=== PATIENT | male | born 1990 | race African-American/Black ===

== ENCOUNTER 2019-03-29 10:48 | Emergency (ER) | payer OTHER ==
[~2019-03-29] VITALS: Ht 193 cm; Wt 81.7 kg
[~2019-03-29 10:48] MED LIST: DOXYCYCLINE 10100 MG PO; FLEXERIL PO; IBUPROFEN 600600 M1 PO; MOBIC15 MG PO; NOHOMEMEDICATIONS; NORCO 5-325 TA1 EACH PO; PENICILLIN V P500 MG PO; PENICILLIN VK500 M1 PO; PREDNISONE 20 M20 MG PO; PROMETHAZINE-C120 ML PO; TRAMADOL 50 MG50 MG PO; ULTRAM 50MG TAB50 MG PO; ZPAK PO
[2019-03-29] MEDS ORDERED: NORFLEX100 MG PO (11:42)
[2019-03-29] MEDS ORDERED: NAPROSYN500 MG PO (11:42)
[2019-03-29 11:50] VITALS: BP 102/72
== END 2019-03-29 11:50 | disposition home or self-care (01) ==
LOC: ER 10:48
DX: S39.012A Strain of muscle, fascia and tendon of lower back, initial encounter (principal); S29.012A Strain of muscle and tendon of back wall of thorax, initial encounter; X50.1XXA Overexertion from prolonged static or awkward postures, initial encounter; Y93.67 Activity, basketball; Y92.89 Other specified places as the place of occurrence of the external cause; Y99.8 Other external cause status

== ENCOUNTER 2020-08-02 23:50 | Inpatient (IN) | payer OTHER ==
[~2020-08-02] VITALS: Ht 190.5 cm; Wt 74.5 kg
[~2020-08-02 23:50] MED LIST changes: +NAPROSYN500 MG PO; +NORFLEX100 MG PO
[2020-08-02 23:54] VITALS: BP 106/59
[2020-08-03 00:50] LABS: ABSOLUTE NEUTROPHILS 2.7 thou/uL (1.4-8.2); BASOPHILS 0.1 % (0.0-2.0); EOSINOPHILS 3.9 % (0.0-3.0); HEMATOCRIT 36.2 % (42.0-52.0); HEMOGLOBIN 12.3 gm/dL (14.0-18.0); LYMPHOCYTES 30.9 % (24.0-44.0); MCH 30.2 pg (26.0-34.0); MCHC 33.9 g/dL (28.0-37.0); MCV 88.9 fL (80.0-100.0); MONOCYTES 8.4 % (1.0-8.0); PLATELET COUNT 204 thou/uL (150-400); POLYS 56.7 % (36.0-66.0); RBC 4.07 mil/uL (4.50-6.00); RDW 13.1 % (10.5-14.5); WBC 4.9 thou/uL (4.0-11.0)
[2020-08-03 00:52] LABS: ANION GAP 9 mmol/L (7-16); BUN 17 mg/dL (7-18); CALCIUM 9.1 mg/dL (8.5-10.1); CHLORIDE 106 mmol/L (98-107); CO2 28 mmol/L (21-32); CREATININE 0.9 mg/dL (0.7-1.3); GLUCOSE 116 mg/dL (74-106); POTASSIUM 4.4 mmol/L (3.5-5.1); SODIUM 143 mmol/L (136-145)
[2020-08-03 01:00] LABS: ALBUMIN 4.2 g/dL (3.4-5.0); LIPASE 109 U/L (73-393); SGOT 14 U/L (15-37); SGPT 14 U/L (16-63); TOTAL BILIRUBIN 0.2 mg/dL (0.2-1.0); TROPONIN-I <0.06 ng/mL (<0.06)
[2020-08-03 03:48] LABS: APTT 24.2 Seconds (24.5-32.8); PROTIME 10.9 Seconds (10.5-12.1)
--- NOTE | 2020-08-03 05:05 | NUR ---
pt moved to inpatient hospital bed.
[2020-08-03 06:15] VITALS: BP 106/59
--- NOTE | 2020-08-03 07:14 | EKG ---
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1990 Requested By: Juanjo Vazquez Order Number: [id number] MD: Russ Abrams Measurements Intervals [place] Rate: 67 P: 76 SD: 142 QRS: 69 QRSD: 89 T: 58 QT: 363 QTc: 383 Interpretive Statements Sinus rhythm LVH by voltage J Point elev, probable normal early repol pattern Baseline wander in lead(s) V5 No previous ECG available for comparison Electronically Signed On 08-03-2020 7:14:30 CDT by Russ Abrams [email or web address] <ELECTRONICALLY SIGNED> By: Russ Abrams MD, [facility] 08/03/20 0714 2358 Russ Abrams MD, FACC /EPI
[2020-08-03 07:16] VITALS: BP 106/59
[2020-08-03 08:00] VITALS: BP 110/66
[2020-08-03 16:39] VITALS: BP 104/60
--- NOTE | 2020-08-03 19:15 | NUR ---
RN ADMITTED PT FROM ER FOR PE ABOUT 0800AM, PT IS A&OX4, PT IS ROOM AIR , PT'S VS AND O2SAT ARE STABLE, PT DENIES SOB WITH ACTIVITIES, PT HAS PO TYENOL 650MG FOR CHEST PAIN, BLE US RESULTS SHOW NEGATIVE DVT, RN WILL REPORT TO NEXT SHIFT TO KEEP EYE ON PT.
[2020-08-03 19:38] VITALS: BP 97/62
[2020-08-04 03:40] VITALS: BP 107/59
[2020-08-04 05:32] LABS: HEMATOCRIT 39.2 % (42.0-52.0); HEMOGLOBIN 13.1 gm/dL (14.0-18.0); MCH 29.8 pg (26.0-34.0); MCHC 33.5 g/dL (28.0-37.0); MCV 88.9 fL (80.0-100.0); RBC 4.41 mil/uL (4.50-6.00); RDW 13.2 % (10.5-14.5); WBC 4.7 thou/uL (4.0-11.0)
[2020-08-04 06:09] LABS: CALCIUM 8.9 mg/dL (8.5-10.1); CREATININE 0.9 mg/dL (0.7-1.3); POTASSIUM 4.3 mmol/L (3.5-5.1)
[2020-08-04 07:45] VITALS: BP 100/58
--- NOTE | 2020-08-04 09:35 | NUR ---
INITIAL ASSESSMENT: CASPER reviewed chart and spoke with nursing and attending physician. Pt was admitted from home due to chest pain. Pt with PE. Pt started on Eliquis. Pt may be ready for discharge later today. CASPER met with pt and at bedside. Introduced role of SW. Pt is alert/orientated x 4. Pt and live at home. Prior to admission, pt was independent with ADLs. No use of DME. No hx of HH or post-acute placement. Pt does not currently have a PCP, but is interested in establishing care at [facility]. CASPER discussed prescription for Eliquis and offered to check coverage and availability at pt's pharmacy. Pt uses the [facility] in [place]. CASPER placed call to the pharmacy ([phone]) and requested insurance verification. [employer] requires prior authorization for new prescription. Exposed [employer] to fax SW form to have physician sign. Prior auth to be called into ID# [id number]. Awaiting fax at this time. CASPER is following to assist as needed with discharge planning.
[2020-08-04 12:14] VITALS: BP 100/58
[2020-08-04] MEDS ORDERED: TYLENOL ARTHRI650 MG PO ×2 (12:21)
[2020-08-04] MEDS ORDERED: ELIQUIS5 M1 PO ×2 (12:21)
[2020-08-04 14:21] VITALS: BP 100/58
[2020-08-04 14:47] VITALS: BP 100/58
--- NOTE | 2020-08-04 14:49 | NUR ---
PATIENT DISCHARGED TO HOME. SIGNIFICANT OTHER AT BEDSIDE DURING EDUCATION AND DISCHARGE INSTRUCTIONS. NO QUETIONS OR CONCERNS AT TIME OF DISCHARGE. PRESCRIPTION GIVEN TO PATIENT. IV AND TELE REMOVED.
[2020-08-05] MEDS ORDERED: NORCO5 PO (14:18)
== END 2020-08-04 15:21 | disposition home or self-care (01) | DRG 176 ==
LOC: ER 23:50 → 3W 08-03 02:45 → EROBS 08-03 02:45 → 3W 08-03 08:25
PROVIDERS: Emergency Medicine; Nurse Practitioner Family; ADMIT Hospitalist; ATTEND Hospitalist
DX: I26.99 Other pulmonary embolism without acute cor pulmonale (principal); F17.210 Nicotine dependence, cigarettes, uncomplicated; Z88.8 Allergy status to other drugs, medicaments and biological substances; Z83.3 Family history of diabetes mellitus; Z71.6 Tobacco abuse counseling
CPT/HCPCS: 10879

== ENCOUNTER 2020-08-05 12:52 | Emergency (ER) | payer OTHER ==
[~2020-08-05] VITALS: Ht 190.5 cm; Wt 74.4 kg
[~2020-08-05 12:52] MED LIST changes: +ELIQUIS5 M1 PO; +TYLENOL ARTHRI650 MG PO
[2020-08-05 14:13] VITALS: BP 113/74
[2020-08-05] MEDS ORDERED: NORCO5 PO (14:18)
--- NOTE | 2020-08-06 11:34 | EKG ---
[address] [address] [place] [address] ELECTROCARDIOGRAM REPORT Name: ROSALES BARBA [id number] Admission: 08/05/20 Attend Phys: Discharge: 08/05/20 Date of : 89 Report #: [id number] 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 08/06/20 1134 1257 1257 Jeremie Kenyon MD, FACC /EPI
== END 2020-08-05 14:13 | disposition home or self-care (01) ==
LOC: ER 12:52
DX: I26.99 Other pulmonary embolism without acute cor pulmonale (principal); R63.0 Anorexia; Z88.6 Allergy status to analgesic agent; Z68.20 Body mass index [BMI] 20.0-20.9, adult

== ENCOUNTER → 2020-09-25 | Outpatient (CLI) | payer OTHER ==
[~2020-09-25] MED LIST changes: +NORCO5 PO
--- NOTE | 2020-09-25 14:44 | 2DMMODE ---
[facility] [place] [address] 2 D/M-MODE ECHOCARDIOGRAM Name: ROSALES BARBA Room #: REG MICHEAL Jenkins.#: [id number] Admission: 09/25/20 Attend Phys: Walker Gallegos MD Discharge: Date of : 89 Report #: [id number] THIS REPORT FOR: cc: Sean Juarez James A. DO Park, Jin S. MD ~ APPROVED REPORT Study performed: 09/25/2020 12:26:25 EXAM: Comprehensive 2D, Doppler, and color-flow Echocardiogram Patient Location: Out-Patient Room #: 2 Status: routine BSA: 2.00 HR: 61 bpm BP: 118/62 mmHg Rhythm: NSR Other Information Study Quality: Excellent Indications Pulmonary Embolism Dyspnea 2D Dimensions RVDd: 38.70 mm IVSd: 9.40 (7-11mm) LVOT Diam: 23.56 (18-24mm) LVDd: 52.81 mm PWd: 7.39 (7-11mm) Ascending Ao: 31.27 (22-36mm) LVDs: 36.64 (25-40mm) Left Atrium: 31.46 (27-40mm) Aortic Root: 34.61 mm IVC: 17.00 mm Volumes Left Atrial Volume (Systole) Single Plane 4CH: 38.60 mL Single Plane 2CH: 49.94 mL LA ESV Index: 26.00 mL/m2 Aortic Valve AoV Peak Norberto.: 1.01 m/s AO Peak Gr.: 4.12 mmHg LVOT Max P.25 mmHg LVOT Max V: 0.90 m/s [facility] [place] [address] 2 D/M-MODE ECHOCARDIOGRAM Name: ROSALES BARBA Room #: REG CL [facility]#: [id number] Admission: 09/25/20 Attend Phys: Chrissy Bazan Discharge: Date of : 89 Report #: [id number] TESFAYE Vmax: 3.87 cm2 Mitral Valve E/A Ratio: 1.3 MV Decel. Time: 173.37 ms MV E Max Norberto.: 0.77 m/s MV A Norberto.: 0.58 m/s MV PHT: 50.28 ms IVRT: 110.73 ms Pulmonary Valve PV Peak Norberto.: 0.93 m/s PV Peak Gr.: 3.45 mmHg Pulmonary Vein P Vein S: 0.46 m/s P Vein A: 0.18 m/s P Vein D: 0.62 m/s P Vein A Dur.: 110.7 msec P Vein S/D Ratio: 0.74 Left Ventricle The left ventricle is normal size. There is normal LV segmental wall motion. There is normal left ventricular wall thickness. Left ventricular systolic function is normal. The left ventricular ejection fraction is within the normal range. LVEF is 60%. The left ventricular diastolic function is normal. Right Ventricle The right ventricle is normal size. The right ventricular systolic function is normal. Atria The left atrium size is normal. The right atrium size is normal. Aortic Valve The aortic valve is normal in structure. No aortic regurgitation is present. There is no aortic valvular stenosis. Mitral Valve The mitral valve is normal in structure. There is no mitral valve regurgitation noted. No evidence of mitral valve stenosis. Tricuspid Valve The tricuspid valve is normal in structure. There is no tricuspid valve regurgitation noted. Pulmonic Valve [facility] [address] [place] [address] 2 D/M-MODE ECHOCARDIOGRAM Name: ROSALES BARBA Room #: REG CL Svetlana.#: [id number] Admission: 09/25/20 Attend Phys: Chrissy Bazan Discharge: Date of : [birth year] Report #: [id number] The pulmonary valve is normal in structure. There is no pulmonic valvular regurgitation. Great Vessels The aortic root is normal in size. IVC is normal in size and collapses >50% with inspiration. Pericardium There is no pericardial effusion. <Conclusion> The left ventricle is normal size. There is normal left ventricular wall thickness. Left ventricular systolic function is normal. The right ventricle is normal size. The left atrium size is normal. The aortic valve is normal in structure. There is no mitral valve regurgitation noted. <ELECTRONICALLY SIGNED> By: Cam Christine MD 09/25/20 1444 1444 1444 Cam Christine MD /INF
== END ==
LOC: CV 13:08
PROVIDERS: ATTEND Pediatrics
DX: I27.82 Chronic pulmonary embolism (principal); R55 Syncope and collapse; R06.00 Dyspnea, unspecified

== ENCOUNTER 2020-10-08 20:03 | Emergency (ER) | payer OTHER ==
[~2020-10-08] VITALS: Ht 190.5 cm; Wt 78.0 kg
[2020-10-08 20:13] VITALS: BP 115/71
[2020-10-08] MEDS ORDERED: METHOCARBAMOL500 M2 PO (21:16)
== END 2020-10-08 22:07 | disposition home or self-care (01) ==
LOC: ER 20:03
DX: S39.012A Strain of muscle, fascia and tendon of lower back, initial encounter (principal); Z88.6 Allergy status to analgesic agent; V43.02XA Car driver injured in collision with other type car in nontraffic accident, initial encounter; Y93.89 Activity, other specified; Y92.89 Other specified places as the place of occurrence of the external cause; Y99.8 Other external cause status

== ENCOUNTER 2020-10-10 22:48 | Emergency (ER) | payer OTHER ==
[~2020-10-10] VITALS: Ht 190.5 cm; Wt 78.9 kg
[~2020-10-10 22:48] MED LIST changes: +METHOCARBAMOL500 M2 PO
[2020-10-10] MEDS ORDERED: TRELEGY ELLIPT1 EACH INH (23:01)
[2020-10-11] LABS: HEMATOCRIT 40.8 % (42.0-52.0); HEMOGLOBIN 13.5 gm/dL (14.0-18.0); MCH 29.5 pg (26.0-34.0); MCV 89.6 fL (80.0-100.0); PLATELET COUNT 165 thou/uL (150-400); RBC 4.55 mil/uL (4.50-6.00); RDW 13.2 % (10.5-14.5); WBC 4.2 thou/uL (4.0-11.0)
[2020-10-11 00:11] LABS: CALCIUM 8.7 mg/dL (8.5-10.1); POTASSIUM 3.8 mmol/L (3.5-5.1)
[2020-10-11 00:17] LABS: APTT 33.9 Seconds (24.5-32.8); INR 1.13; PROTIME 12.2 Seconds (10.5-12.1)
[2020-10-11 00:45] VITALS: BP 101/54
[2020-10-11 01:16] LABS: ABSOLUTE NEUTROPHILS 2.6 thou/uL (1.4-8.2); PLATELET ESTIMATE NORMAL
== END 2020-10-11 00:45 | disposition home or self-care (01) ==
LOC: ER 22:48
PROVIDERS: Emergency Medicine
DX: U07.1 COVID-19 (principal); R51.9 Headache, unspecified; Z79.891 Long term (current) use of opiate analgesic; Z79.899 Other long term (current) drug therapy; Z88.8 Allergy status to other drugs, medicaments and biological substances; V89.2XXA Person injured in unspecified motor-vehicle accident, traffic, initial encounter; Y93.89 Activity, other specified; Y92.89 Other specified places as the place of occurrence of the external cause; Y99.8 Other external cause status

== ENCOUNTER → 2020-11-02 | Outpatient (CLI) | payer OTHER ==
[~2020-11-02] MED LIST changes: +TRELEGY ELLIPT1 EACH INH
== END ==
LOC: RAD 16:02
PROVIDERS: ATTEND Nurse Practitioner
DX: Q05.6 Thoracic spina bifida without hydrocephalus (principal); V89.2XXD Person injured in unspecified motor-vehicle accident, traffic, subsequent encounter

== ENCOUNTER 2021-04-24 14:52 | Emergency (ER) | payer BC, OTHER ==
[~2021-04-24] VITALS: Ht 190.5 cm; Wt 81.7 kg
[2021-04-24 15:39] LABS: HEMATOCRIT 41.1 % (42.0-52.0); HEMOGLOBIN 13.6 gm/dL (14.0-18.0); MCH 29.4 pg (26.0-34.0); MCHC 33.1 g/dL (28.0-37.0); MCV 88.8 fL (80.0-100.0); RBC 4.63 mil/uL (4.50-6.00); WBC 4.7 thou/uL (4.0-11.0)
[2021-04-24 15:42] LABS: CREATININE 1.2 mg/dL (0.7-1.3); POTASSIUM 4.1 mmol/L (3.5-5.1)
[2021-04-24 15:48] LABS: ALBUMIN 4.1 g/dL (3.4-5.0); TOTAL BILIRUBIN 0.3 mg/dL (0.2-1.0); TOTAL PROTEIN 7.1 g/dL (6.4-8.2)
--- NOTE | 2021-04-24 16:26 | EKG ---
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1990 Requested By: Guillermo Murrieta Order Number: [id number] MD: Jeremie Kenyon Measurements Intervals [place] Rate: 72 P: 70 [place]: 138 QRS: 65 QRSD: 84 T: 57 QT: 350 QTc: 383 Interpretive Statements Sinus rhythm Normal tracing Compared to ECG 08/05/2020 12:57:51 No significant change was found Electronically Signed On 04-24-2021 16:26:32 TELECOMMUNICATIONS ANALYST by Jeremie Kenyon [email or web address] <ELECTRONICALLY SIGNED> By: Jeremie Kenyon MD, [facility] 04/24/21 1626 1457 1457 Jeremie Kenyon MD, FACC /EPI
[2021-04-24 16:44] VITALS: BP 105/67
== END 2021-04-24 16:45 | disposition home or self-care (01) ==
LOC: ER 14:52
PROVIDERS: Emergency Medicine
DX: R07.89 Other chest pain (principal); Z88.8 Allergy status to other drugs, medicaments and biological substances